=== PATIENT | female | born 1965 | race Caucasian/White ===

== ENCOUNTER 2018-03-18 18:12 | Emergency (ER) | payer SELFPAY ==
[~2018-03-18] VITALS: Ht 162.6 cm; Wt 43.1 kg
[2018-03-18 18:25] VITALS: Ht 162.6 cm; Wt 43.1 kg
[2018-03-18 19:22] VITALS: BP 142/90
== END 2018-03-18 19:22 | disposition home or self-care (01) ==
LOC: ED 18:12
DX: L03.113 Cellulitis of right upper limb (principal); Z88.5 Allergy status to narcotic agent; W55.01XA Bitten by cat, initial encounter; Y93.89 Activity, other specified; Y92.89 Other specified places as the place of occurrence of the external cause; Y99.8 Other external cause status

== ENCOUNTER 2018-07-02 23:36 | Emergency (ER) | payer SELFPAY ==
[2018-07-03 01:23] VITALS: BP 135/72
== END 2018-07-03 01:23 | disposition home or self-care (01) ==
LOC: ED 23:36
DX: M79.674 Pain in right toe(s) (principal); I10 Essential (primary) hypertension; Z88.5 Allergy status to narcotic agent; W23.0XXA Caught, crushed, jammed, or pinched between moving objects, initial encounter; Y93.89 Activity, other specified; Y92.89 Other specified places as the place of occurrence of the external cause; Y99.8 Other external cause status
CPT/HCPCS: Q0092

== ENCOUNTER 2018-11-15 21:22 | Emergency (ER) | payer SELFPAY ==
[~2018-11-15] VITALS: Ht 165.1 cm; Wt 49.9 kg
[2018-11-15 21:36] VITALS: Ht 165.1 cm; Wt 49.9 kg
[2018-11-15 22:46] LABS: BASOPHIL % 1.7 % (0-2); PLATELET COUNT 283 x10^3mcL (130-400)
[2018-11-15 22:49] LABS: RED CELL DISTRIBUTION WIDTH 15.1 % (11.5-14.5)
[2018-11-15 22:57] LABS: CALCIUM 8.3 mg/dL (8.5-10.1); CARBON DIOXIDE 27.2 mmol/L (21-32); CHLORIDE SERUM 105 mmol/L (98-107); CREATININE SERUM 0.8 mg/dL (0.6-1.0); GFR1 > 60 mL/min; GLUCOSE SERUM 83 mg/dL (74-106); SODIUM SERUM 139 mmol/L (136-145)
[2018-11-15 23:01] LABS: ALBUMIN 3.3 g/dL (3.4-5.0); ALKALINE PHOSPHATASE 85 U/L (46-116); ALT/SGPT 30 U/L (14-59); AST/SGOT 22 U/L (15-37); BILIRUBIN TOTAL 0.1 mg/dL (0.20-1.00); TOTAL PROTEIN, SERUM 6.5 g/dL (6.4-8.2)
[2018-11-16 00:22] VITALS: BP 153/59
== END 2018-11-16 00:22 | disposition home or self-care (01) ==
LOC: ED 21:22
PROVIDERS: Emergency Medicine
DX: M94.0 Chondrocostal junction syndrome [Tietze] (principal); I10 Essential (primary) hypertension
CPT/HCPCS: 36415

== ENCOUNTER 2020-11-01 23:46 | Emergency (ER) | payer SELFPAY ==
[~2020-11-01] VITALS: Ht 162.6 cm; Wt 48.1 kg
[2020-11-02 00:01] VITALS: BP 154/85; Ht 162.6 cm; Wt 48.1 kg
== END 2020-11-02 02:27 | disposition home or self-care (01) ==
LOC: ED 23:46
DX: G56.03 Carpal tunnel syndrome, bilateral upper limbs (principal); I10 Essential (primary) hypertension; Z88.8 Allergy status to other drugs, medicaments and biological substances